=== PATIENT | female | born 1975 | race Hispanic/Latino ===

== ENCOUNTER 2020-12-04 00:26 | Inpatient (IN) | payer SELFPAY ==
[2020-12-04 01:02] LABS: Urine Blood 2+ (Negative); Urine Glucose Negative (Negative); Urine Protein 2+ (Negative); Urine Specific Gravity >=1.030 (1.005-1.030); Urine pH 6.5 (5.0-7.0)
[2020-12-04 01:41] LABS: Urine Amorphous Sediment 3+ /HPF (NONE SEEN); Urine Bacteria <20 /HPF (<20); Urine RBC NONE SEEN /HPF (NONE SEEN)
[2020-12-04 03:29] LABS: Absolute Lymphocytes (CBC) 0.7 K/uL (0.7-4.9); Basophils % 0.2 % (0-1.3); Hematocrit 32.3 % (36.0-45.0); Lymphocytes % 6.5 % (15.3-44.8); MPV 7.7 fL (7.6-11.3)
[2020-12-04 04:01] LABS: ALT/SGPT 14 U/L (12-78); AST/SGOT 12 U/L (15-37); Albumin 3.4 g/dL (3.4-5.0); Alkaline Phosphatase 54 U/L (45-117); BUN Blood Urea Nitrogen 16 mg/dL (7-18); Bicarbonate 26 mmol/L (21-32); Bilirubin Direct < 0.1 mg/dL (0-0.2); Bilirubin Total 0.4 mg/dL (0.2-1.0); Glucose Level 163 mg/dL (74-106); Lipase 12097 U/L (73-393); Potassium 4.2 mmol/L (3.5-5.1); Protein, Total 6.4 g/dL (6.4-8.2); Sodium Level 142 mmol/L (136-145)
[2020-12-04 04:08] LABS: Blood Morphology Comment NOT SEEN (NOT SEEN); Platelet Estimate ADEQ
[2020-12-04] MEDS ORDERED: PIPERACIL/TAZO 3.375 GM VIAL IV ONE (06:44)
[2020-12-04] MEDS ORDERED: NA CHLORIDE 0.9% 100 ML ONE (06:44)
[2020-12-04] MEDS ORDERED: NA CHLORIDE 0.9% 1,000 ML ONE ×2 (06:44→12:26)
[2020-12-04] MEDS ORDERED: MORPHINE 4 MG/ML SYR ONE (08:46)
[2020-12-04] MEDS ORDERED: ONDANSETRON 4 MG/2 ML VIAL ONE ×2 (08:46→15:26)
--- NOTE | 2020-12-04 11:15 | EDPHYS ---
Physician Documentation [facility] Name: Luz Elena Stubbs Age: 45 yrs Sex: Female : 1975 Arrival Date: 12/04/2020 Time: 00:29 Bed 25 Private MD: ED Physician Hussain Ramirez HPI: 12/04 01:00 This 45 yrs old Female presents to ER via Ambulatory with complaints of cp Abdominal Pain, Vomiting. 01:00 The patient presents with abdominal pain in the upper abdomen. Onset: The cp symptoms/episode began/occurred last night. The symptoms radiate to back, chest. Associated signs and symptoms: Pertinent positives: nausea and vomiting. 01:00 Severity of pain: in the emergency department the pain is unchanged despite home cp interventions. 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 - Social history:: Smoking status: Patient denies any tobacco usage or history of. Patient/guardian denies using alcohol, street drugs. ROS: 01:05 Constitutional: Negative for body aches, chills, fever. cp 01:05 Eyes: Negative for injury, pain, redness, and discharge. cp 01:05 ENT: Negative for ear pain, sore throat, difficulty swallowing, difficulty handling secretions. 01:05 Cardiovascular: Positive for chest pain. 01:05 Respiratory: Negative for cough, shortness of breath, wheezing. 01:05 Abdomen/GI: Positive for abdominal pain, nausea and vomiting, Negative for diarrhea, constipation. 01:05 Neuro: Negative for altered mental status, headache, weakness. 01:05 All other systems are negative. Exam: 01:10 Constitutional: The patient appears in no acute distress, alert, awake, cp non-diaphoretic, non-toxic, well developed, well nourished, uncomfortable. 01:10 Head/Face: Normocephalic, atraumatic. cp 01:10 Eyes: Periorbital structures: appear normal, Conjunctiva: normal, no exudate, no injection, Sclera: no appreciated abnormality, Lids and lashes: appear normal, bilaterally. 01:10 ENT: External ear(s): are unremarkable, Nose: is normal, Mouth: Lips: moist, Oral mucosa: moist, Posterior pharynx: Airway: no evidence of obstruction, patent. 01:10 Chest/axilla: Inspection: normal, Palpation: is normal, no crepitus, no tenderness. 01:10 Cardiovascular: Rate: normal, Rhythm: regular. 01:10 Respiratory: the patient does not display signs of respiratory distress, Respirations: normal, no use of accessory muscles, no retractions, labored breathing, is not present, Breath sounds: are clear throughout, no decreased breath sounds, no stridor, no wheezing. 01:10 Abdomen/GI: Inspection: abdomen appears normal, Bowel sounds: active, all quadrants, Palpation: soft, in all quadrants, severe abdominal tenderness, in the right upper quadrant and left upper quadrant, rebound tenderness, is not appreciated, voluntary guarding, is elicited in the right upper quadrant and left upper quadrant. 01:10 Back: pain, that is mild, ROM is normal. 01:10 Neuro: Orientation: to person, place \T\ time. Mentation: is normal. Vital Signs: 00:43 BP 133 / 75; Pulse 63; Resp 18; Temp 97.6; Pulse Ox 100% on R/A; Weight 66.68 kg; df1 Height 5 ft. 5 in. (165.10 cm); Pain 1010; 00:55 BP 107 / 80; Pulse 62; Resp 18; Temp 97.6; Pulse Ox 100% on R/A; cc4 01:15 BP 115 / 79; Pulse 62; Resp 18; Pulse Ox 100% on R/A; cc4 01:45 BP 119 / 82; Pulse 64; Resp 18; Pulse Ox 100% on R/A; cc4 02:15 BP 125 / 80; Pulse 66; Resp 18; Pulse Ox 100% on R/A; cc4 03:15 BP 116 / 77; Pulse 72; Resp 16; Pulse Ox 99% on R/A; cc4 04:00 BP 124 / 79; Pulse 65; Resp 20; Pulse Ox 100% on R/A; cc4 06:11 BP 127 / 76; Pulse 65; Resp 18; Temp 97.7; Pulse Ox 99% on R/A; cc4 06:30 BP 129 / 78; Pulse 64; Resp 16; Pulse Ox 99% on R/A; cc4 08:35 BP 127 / 77; Pulse 63; Resp 18; Pulse Ox 97% on R/A; jw6 10:58 BP 132 / 80; Pulse 62; Resp 18; Pulse Ox 97% on R/A; jw6 13:50 BP 112 / 65; Pulse 65; Resp 16; Pulse Ox 98% on R/A; jw6 00:43 Body Mass Index 24.46 (66.68 kg, 165.10 cm) df1 MDM: 00:53 Patient medically screened. cp 01:10 Differential diagnosis: cholecystitis, Cholelithiasis, gastroesophageal reflux disease, cp pancreatitis, Peptic Ulcer Disease, Perf. Duodenal Ulcer, Perf. Gastric Ulcer, Pyelonephritis, Ureterolithiasis, urinary tract infection. 06:00 Data reviewed: vital signs, nurses notes, lab test result(s), radiologic studies, CT pkl scan, ultrasound. 11:13 Differential diagnosis: Nonspecific abd pain, gastritis, cholecystitis, pancreatitis, rn viral gastroenteritis, gastroenteritis, Pancreatitis, cholelithiasis, gallstone pancreatitis. Counseling: I had a detailed discussion with the patient and/or guardian regarding: the historical points, exam findings, and any diagnostic results supporting the discharge/admit diagnosis, lab results, radiology results, the need for further work-up and treatment in the hospital. Response to treatment: the patient's symptoms have markedly improved after treatment, and as a result, I will admit patient. Admission orders: after a detailed discussion of the patient's condition and case, the admit orders are written by me. ED course: Consulted with Dr. Ryan, will admit to his service for gallstone pancreatitis.. 12/04 00:55 Order name: Basic Metabolic Panel; Complete Time: 04:06 cp 12/04 00:55 Order name: CBC with Diff; Complete Time: 04:13 cp 12/04 00:55 Order name: Hepatic Function; Complete Time: 04:06 cp 12/04 00:55 Order name: Lipase; Complete Time: 04:06 cp 12/04 00:55 Order name: Urine Microscopic Only; Complete Time: 01:43 cp 12/04 01:43 Interpretation: Normal except: AMORPH 3+. cp 12/04 01:01 Order name: Urine Dipstick-Ancillary; Complete Time: 01:27 EDMS 12/04 01:43 Interpretation: Normal except: UKET Trace; UBLD 2+; UPROT 2+. cp 12/04 01:00 Order name: US Abdomen Limited: liver/gallbladder; Complete Time: 00:08 cp 12/04 03:31 Order name: Manual Differential; Complete Time: 04:13 EDMS 12/04 04:08 Order name: CT Abd/Pelvis - IV Contrast Only; Complete Time: 00:08 pkl 12/04 04:47 Order name: SARS-COV-2 RT PCR; Complete Time: 06:09 EDMS 12/04 00:55 Order name: IV Saline Lock; Complete Time: 01:28 cp 12/04 00:55 Order name: Labs collected and sent; Complete Time: 01:28 cp 12/04 00:55 Order name: Urine Dipstick-Ancillary (obtain specimen); Complete Time: 01:05 cp 12/04 00:55 Order name: Urine Test (obtain specimen); Complete Time: 01:26 cp 12/04 01:40 Order name: Labs - recollect needed: all labs needed; Complete Time: 08:17 mw2 Administered Medications: 01:15 Drug: Zofran (Ondansetron) 4 mg Route: IVP; Site: left antecubital; cc4 08:17 Follow up: Response: No adverse reaction jw6 01:15 Drug: Pepcid (famotidine) 20 mg Route: IVP; Site: left antecubital; cc4 08:17 Follow up: Response: No adverse reaction jw6 01:15 Drug: fentaNYL (PF) 25 mcg Route: IVP; Site: left antecubital; cc4 08:16 Follow up: Response: No adverse reaction jw6 01:15 Drug: NS 0.9% 1000 ml Route: IV; Rate: 1 bolus; Site: left antecubital; cc4 02:10 Drug: morphine 4 mg Route: IVP; Site: left antecubital; cc4 08:16 Follow up: Response: No adverse reaction jw6 03:14 Drug: Dilaudid (HYDROmorphone) 1 mg Route: IVP; Site: left antecubital; cc4 08:16 Follow up: Response: No adverse reaction jw6 03:14 Drug: Promethazine 12.5 mg Route: IVP; Site: left antecubital; cc4 08:16 Follow up: Response: No adverse reaction jw6 06:15 Drug: Zosyn (piperacillin-tazobactam) 3.375 grams Route: IVPB; Infused Over: 60 mins; cc4 Site: left antecubital; 08:17 Follow up: Response: No adverse reaction; IV Status: Completed infusion; IV Intake: jw6 100ml 06:15 Drug: NS 0.9% 1000 ml Route: IV; Rate: 125 ml/hr; Site: left antecubital; cc4 14:16 Follow up: Response: No adverse reaction; IV Status: Infusion continued upon transfer; jw6 IV Intake: 1200ml 08:22 Drug: morphine 4 mg Route: IVP; Site: right antecubital; jw6 08:24 Follow up: Response: No adverse reaction jw6 08:22 Drug: Zofran (Ondansetron) 4 mg Route: IVP; Site: right antecubital; jw6 08:24 Follow up: Response: No adverse reaction jw6 Disposition: 11:13 Co-signature as Attending Physician, Hussain Ramirez MD I agree with the assessment and rn plan of care. 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 HPI: 45-year-old female who presents with abdominal pain and vomiting. Has never happened to her before. My personal exam of patient reveals: Tenderness epigastrium and right upper quadrant with guarding, no peritoneal signs. No masses. I agree with assessment and care plan and confirm the diagnosis (es) above. Disposition Summary: 12/04/20 11:14 Hospitalization Ordered Hospitalization Status: Inpatient Admission rn Provider: Jovanni Ryan rn Condition: Stable rn Problem: new rn Symptoms: have improved rn Bed/Room Type: Standard rn Location: [facility] ER HOLD(12/04/20 12:23) ds1 Room Assignment: ERHOLD-(12/04/20 12:23) ds1 Diagnosis - Other cholelithiasis without obstruction rn - Biliary acute pancreatitis without necrosis or infection rn Forms: - Medication Reconciliation Form rn - SBAR form rn Signatures: Dispatcher [employer] EDMS Zaid Martinez MD MD Gina Medina ds1 Ramirez, Hussain, MD MD rn Franco Motta PA PA cp [place], MyKena mw2 Yanira Mistry, RN RN [id number] Kristal Montes df1 Quita Colon jw6 Corrections: (The following items were deleted from the chart) 00:45 00:44 PMHx: None; df1 df1 04:47 04:18 CORONAVIRUS+BRZ ordered. EDMS EDMS 12: 11:14 Telemetry/MedSurg (Inpatient) rn ds1 12:23 11:14 rn ds1
--- NOTE | 2020-12-04 11:15 | ER ---
Nurse's Notes [facility] Name: Luz Elena Stubbs Age: 45 yrs Sex: Female : 1975 Arrival Date: 12/04/2020 Time: 00:29 Bed 25 Private MD: Diagnosis: Other cholelithiasis without obstruction;Biliary acute pancreatitis without necrosis or infection Presentation: 12/04 00:43 Chief complaint: Patient states: upper mid abd pain with vomiting since 2099. df1 Coronavirus screen: Vaccine status: Patient reports being unvaccinated. Client denies travel out of the [place] in the last 14 days. Ebola Screen: Patient negative for fever greater than or equal to 101.5 degrees Fahrenheit, and additional compatible Ebola Virus Disease symptoms Patient denies exposure to infectious person. Patient denies travel to an Ebola-affected area in the 21 days before illness onset. Initial Sepsis Screen: Does the patient meet any 2 criteria? No. Patient's initial sepsis screen is negative. Does the patient have a suspected source of infection? No. Patient's initial sepsis screen is negative. Risk Assessment: Do you want to hurt yourself or someone else? Patient reports no desire to harm self or others. Onset of symptoms was December 03, 2020 at 21:00. 00:43 Method Of Arrival: Ambulatory df1 00:43 Acuity: FRANKY 3 df1 SOLE SKIVER: 00:55 LMP 11/28/2020 cc4 Historical: - Allergies: 00:44 No Known Allergies; df1 - Home Meds: 00:44 None [Active]; df1 - PMHx: 00:45 RA; df1 - PSHx: 00:44 None; df1 - Immunization history:: Adult Immunizations not up to date, Client reports having NOT received the Covid vaccine. - Social history:: Smoking status: Patient denies any tobacco usage or history of. Patient/guardian denies using alcohol, street drugs. Screenin:55 Abuse screen: Denies threats or abuse. Nutritional screening: No deficits noted. cc4 Tuberculosis screening: No symptoms or risk factors identified. Fall Risk None identified. Assessment: 00:55 General: Appears distressed, uncomfortable, Behavior is cooperative, anxious. Pain: cc4 Complains of pain in epigastrium \T\ right upper quadrant abdominal pain. Pain does not radiate. Pain currently is 10 out of 10 on a pain scale. at worst was 10 out of 10 on a pain scale. Quality of pain is described as crampy, sharp, Pain began 2100 12/03/2020. Neuro: No deficits noted. Level of Consciousness is awake, alert, obeys commands, Oriented to person, place, time, situation. Cardiovascular: No deficits noted. Denies chest pain, Heart tones S1 S2 Capillary refill < 3 seconds Patient's skin is warm and dry. Pulses are all present. Rhythm is sinus rhythm. Respiratory: No deficits noted. Airway is patent Breath sounds are clear bilaterally. GI: Abdomen is flat, non-distended, Bowel sounds present X 4 quads. Abd is soft Abdomen is tender to palpation Epigastrium \T\ right upper quad abd. : No signs and/or symptoms were reported regarding the genitourinary system. EENT: No deficits noted. No signs and/or symptoms were reported regarding the EENT system. Eyes Clear. Nares Clear. Derm: No deficits noted. No signs and/or symptoms reported regarding the dermatologic system. Skin is intact. Musculoskeletal: No deficits noted. No signs and/or symptoms reported regarding the musculoskeletal system. Capillary refill < 3 seconds, Range of motion: intact in all extremities. 01:15 Reassessment: No changes from previously documented assessment. # 20 g angiocath saline cc4 lock inserted left AC x 1 attempt with no difficulty, adrien. well; IV NS 1 liter hung to saline lock left AC \T\ infusing \T\ open rate with no s/sx's of infiltration; medicated as ordered for pain \T\ nausea (see orders). 01:35 Reassessment: Dozing intermittently; reports decreasing pain epigastrium and right cc4 upper quad abd. pain to 8/10; US complete; VSS. 02:10 Reassessment: c/o increasing epigastric \T\ right upper quad abd. pain with C. ODETTE Motta cc4 notified with new order rec'd; morphine 4 mg given IVP as ordered; IV NS con't to infuse \T\ open rate left AC with no s/sx's of infiltration. 03:00 Reassessment: IV NS 1 liter infused \T\ converted back to saline lock with no difficulty; cc4 blood drawn from left AC saline lock as recollect \T\ sent to lab. 03:14 Reassessment: Patient appears in no apparent distress at this time. Reports con't pain cc4 of epigastrium \T\ right upper quad abd. 7/10 on pain scale; Dr Martinez notified with new order rec'd; Dilaudid 1 mg \T\ phenergan 12.5 mg given slow IVP as ordered(see orders); VSS; \T\ bedside. 04:10 Reassessment: Patient appears in no apparent distress at this time. Sleeping; VSS; to cc4 CT via stretcher. 04:40 Reassessment: Patient appears in no apparent distress at this time. Returned from CT cc4 via stretcher; NAD. 06:00 Reassessment: Patient appears in no apparent distress at this time. No changes from cc4 previously documented assessment. Dr. Martinez in to see \T\ explaining to of condition \T\ need to transfer to another facility for additional care with v/u. 06:15 Reassessment: Patient appears in no apparent distress at this time. No changes from cc4 previously documented assessment. IVPB Zosyn 3.375 g hung \T\ infusing \T\ 100ml/hr/pump with no difficulty; sleeping; arouses easily; denies any pain; VSS; Dr. Martinez attempting to transfer. 07:00 General: Report given to UMAIR Devlin.. cc4 Vital Signs: 00:43 BP 133 / 75; Pulse 63; Resp 18; Temp 97.6; Pulse Ox 100% on R/A; Weight 66.68 kg; df1 Height 5 ft. 5 in. (165.10 cm); Pain 1010; 00:55 BP 107 / 80; Pulse 62; Resp 18; Temp 97.6; Pulse Ox 100% on R/A; cc4 01:15 BP 115 / 79; Pulse 62; Resp 18; Pulse Ox 100% on R/A; cc4 01:45 BP 119 / 82; Pulse 64; Resp 18; Pulse Ox 100% on R/A; cc4 02:15 BP 125 / 80; Pulse 66; Resp 18; Pulse Ox 100% on R/A; cc4 03:15 BP 116 / 77; Pulse 72; Resp 16; Pulse Ox 99% on R/A; cc4 04:00 BP 124 / 79; Pulse 65; Resp 20; Pulse Ox 100% on R/A; cc4 06:11 BP 127 / 76; Pulse 65; Resp 18; Temp 97.7; Pulse Ox 99% on R/A; cc4 06:30 BP 129 / 78; Pulse 64; Resp 16; Pulse Ox 99% on R/A; cc4 08:35 BP 127 / 77; Pulse 63; Resp 18; Pulse Ox 97% on R/A; jw6 10:58 BP 132 / 80; Pulse 62; Resp 18; Pulse Ox 97% on R/A; jw6 13:50 BP 112 / 65; Pulse 65; Resp 16; Pulse Ox 98% on R/A; jw6 00:43 Body Mass Index 24.46 (66.68 kg, 165.10 cm) df1 ED Course: 00:29 Patient arrived in ED. wm 00:44 Triage completed. df1 00:46 Franco Motta PA is PHCP. cp 00:46 Zaid Martinez MD is Attending Physician. cp 00:49 Yanira Mistry, UMAIR is Primary Nurse. cc4 00:55 Patient has correct armband on for positive identification. Bed in low position. Call cc4 light in reach. Side rails up X 1. 01:15 Arm band placed on. Urine obtained. Urine : negative. Labs ordered per cc4 protocol. Drawn by ED staff. 01:39 US Abdomen Limited: liver/gallbladder In Process Unspecified. EDMS 04:34 CT Abd/Pelvis - IV Contrast Only In Process Unspecified. EDMS 06:07 initiated a transfer with Vj from [facility] Transfer [facility]. mw2 06:[address] Martinez with the General Surgeon from [facility]. mw2 07:02 Attending Physician role handed off by Zaid Martinez MD rn 07:02 Hussain Ramirez MD is Attending Physician. rn 07:14 No provider procedures requiring assistance completed. jw6 07:18 spoke to [facility] transfer [facility], notified that they are waiting for our general surgeon mt to consult and call before acceptance. 11:14 Jovanni Ryan MD is Hospitalizing Provider. rn 14:15 to surgery by REAL ESTATE EXECUTIVE ASSISTANT. jw6 Administered Medications: 01:15 Drug: Zofran (Ondansetron) 4 mg Route: IVP; Site: left antecubital; cc4 08:17 Follow up: Response: No adverse reaction jw6 01:15 Drug: Pepcid (famotidine) 20 mg Route: IVP; Site: left antecubital; cc4 08:17 Follow up: Response: No adverse reaction jw6 01:15 Drug: fentaNYL (PF) 25 mcg Route: IVP; Site: left antecubital; cc4 08:16 Follow up: Response: No adverse reaction jw6 01:15 Drug: NS 0.9% 1000 ml Route: IV; Rate: 1 bolus; Site: left antecubital; cc4 02:10 Drug: morphine 4 mg Route: IVP; Site: left antecubital; cc4 08:16 Follow up: Response: No adverse reaction jw6 03:14 Drug: Dilaudid (HYDROmorphone) 1 mg Route: IVP; Site: left antecubital; cc4 08:16 Follow up: Response: No adverse reaction jw6 03:14 Drug: Promethazine 12.5 mg Route: IVP; Site: left antecubital; cc4 08:16 Follow up: Response: No adverse reaction jw6 06:15 Drug: Zosyn (piperacillin-tazobactam) 3.375 grams Route: IVPB; Infused Over: 60 mins; cc4 Site: left antecubital; 08:17 Follow up: Response: No adverse reaction; IV Status: Completed infusion; IV Intake: jw6 100ml 06:15 Drug: NS 0.9% 1000 ml Route: IV; Rate: 125 ml/hr; Site: left antecubital; cc4 14:16 Follow up: Response: No adverse reaction; IV Status: Infusion continued upon transfer; jw6 IV Intake: 1200ml 08:22 Drug: morphine 4 mg Route: IVP; Site: right antecubital; jw6 08:24 Follow up: Response: No adverse reaction jw6 08:22 Drug: Zofran (Ondansetron) 4 mg Route: IVP; Site: right antecubital; jw6 08:24 Follow up: Response: No adverse reaction jw6 Intake: 08:17 IV: 100ml; Total: 100ml. jw6 14:16 IV: 1200ml; Total: 1300ml. jw6 Outcome: 11:14 Decision to Hospitalize by Provider. rn 15:16 Patient left the ED. jw6 Signatures: Dispatcher [employer] EDHussain Kelly MD MD rn Franco Motta PA PA cp Thompson, Moriah mn Neida, Agustina 2 Camille Salas Christie, RN RN cc4 Kristal Montes df1 Quita Colon jw6 Corrections: (The following items were deleted from the chart) 00:45 00:44 PMHx: None; df1 df1
--- NOTE | 2020-12-04 11:20 | RAD REPORT ---
EXAM DESCRIPTION: CT - Abdomen Pelvis W Contrast - 12/04/2020 6:13 am COMPARISON: None. CLINICAL HISTORY: [facility] MAIN ABD PAIN TECHNIQUE: CT of the abdomen and pelvis was acquired with IV contrast material. Coronal and sagitt al reconstructions were obtained. Automated exposure control was utilized on this examination as a dose lowering technique. FINDINGS: Lung bases: Small pleural effusions are present. Moderate pulmonary edema. Liver: Small right hepatic cyst. Gallbladder and biliary: Normal gallbladder. Unremarkable biliary tree. Pancreas: Peripancreatic fluid is present. Spleen: Normal. Adrenal glands: Normal adrenal glands. Kidneys: Normal kidneys Stomach and Small Bowel: The stomach and small bowel are normal. Urinary bladder: Normal. Uterus and Adnexa: Normal. Colon and Appendix: The colon is unremarkable. No evidence of appendicitis. Retroperitoneum and lymph nodes: Normal. Vascular: Prominent left ovarian vein. Peritoneal cavity: Moderate ascites. Musculoskeletal and soft tissues: Small fat-containing periumbilical hernia. No aggressive bone lesio ns. No compression fracture. IMPRESSION: 1. Peripancreatic fluid could be due to acute pancreatitis or moderate ascites. 2. Small pleural effusions with moderate pulmonary edema. 3. Prominent left ovarian vein which may indicate mild pelvic congestion syndrome. Electronically signed by: Royer Whyte MD 12/04/2020 5:44 AM CDT Due to temporary technical issues with the PACS/Fluency reporting system, reports are being signed by the in house radiologist without review as a courtesy to ensure prompt reporting. The interpreting r adiologist is fully responsible for the content of the report.
--- NOTE | 2020-12-04 11:22 | RAD REPORT ---
EXAM DESCRIPTION: US - Abdomen Exam Limited - 12/04/2020 4:04 am CLINICAL HISTORY: 45 years Female upper abdomen pain TECHNIQUE: Transabdominal scans of the right upper quadrant of the abdomen with grayscale imaging an d Doppler. COMPARISON: None. FINDINGS: Liver: Not evaluated. Portal vein: Not evaluated. Gallbladder: Gallstones are present. Normal gallbladder wall thickness measuring 2 mm. No pericholecy stic fluid. Biliary ducts: Common bile duct is normal measuring 2 mm. Pancreas: Not evaluated. Right kidney: Not evaluated. Aorta and IVC: Not evaluated. IMPRESSION: Cholelithiasis without sonographic evidence of acute cholecystitis. Electronically signed by: Bandar rGeco MD 12/04/2020 2:50 AM CDT Due to temporary technical issues with the PACS/Fluency reporting system, reports are being signed by the in house radiologist without review as a courtesy to ensure prompt reporting. The interpreting r adiologist is fully responsible for the content of the report.
[2020-12-04 13:41] VITALS: BMI 23.3
[2020-12-04] MEDS ORDERED: INFLUENZA VACCINE (for 6+ mo) 0.5 ML DOSE IMVAC ONE (14:00)
[2020-12-04] MEDS ORDERED: MORPHINE 4 MG/ML SYR IV PRN ×2 (14:02→16:25)
[2020-12-04] MEDS ORDERED: ONDANSETRON 4 MG/2 ML VIAL IV PRN ×2 (14:02→16:25)
[2020-12-04] MEDS: D5 0.45 NS 1,000 ML IV SCH ×2 (14:02→21:55)
[2020-12-04] MEDS ORDERED: propofoL 200 MG/20 ML VIAL IV ONE (14:22)
[2020-12-04] MEDS ORDERED: FENTANYL CITR 100 MCG/2 ML ONE (14:23)
[2020-12-04] MEDS ORDERED: ROCURONIUM 50 MG/5 ML VIAL IV ONE (14:23)
[2020-12-04] MEDS ORDERED: LIDOCAINE 1% MPF 2 ML AMPULE ONE (14:23)
[2020-12-04] MEDS ORDERED: LIDOCAINE 1% MPF 5 ML VIAL ONE (14:23)
[2020-12-04] MEDS ORDERED: Ringers Lactate 1,000 ML IV ONE (14:48)
--- NOTE | 2020-12-04 14:49 | P.HP ---
Date of Service: 12/04/20 PC: This 45-year-old female presented to the emergency room with severe abdominal pain for diagnosis and treatment. HPC: Patient started having severe abdominal pain earlier today. Located in the middle portion of her abdomen, radiating into her back. Says she never had pain like this before. PSHx: Negative PMHx: Negative Social Hx: No known allergies Sys R: No cough, wheeze, shortness of breath. No chest pain or palpitations. States she has been in relatively good health until this. O/E: Awake alert vital signs are stable HEENT: Nonicteric Chest: Air entry equal bilaterally Abd: Tender in the right upper quadrant [place]: Intact Data: Elevated lipase, CT scan shows pancreatitis, also gallstones Impression: Cholecystitis with cholelithiasis, gallstone pancreatitis Plan: I will taken the operating room for laparoscopic possible open cholecystectomy with a cholangiogram. The risks of this procedure have been discussed. The possibility of bleeding, infection, injury to bile ducts blood vessels and intestines has been described. The possible need for an open and/or further surgeries and procedures was discussed. She understands and wants us to proceed.
[2020-12-04] MEDS: CEFTRIAXONE 1 GM/NS 50 ML 1 GM/50 ML BAG IV SCH (15:00)
[2020-12-04] MEDS ORDERED: KETOROLAC 30 MG/ML INJ ONE (15:26)
[2020-12-04] MEDS ORDERED: dexAMETHasone 10 MG/ML VIAL ONE (15:26)
[2020-12-04] MEDS ORDERED: GLYCOPYRROLATE 0.2 MG/ML SYR ONE (15:33)
[2020-12-04] MEDS ORDERED: NEOSTIGMINE 1 MG/ML -5 ML ONE (15:33)
[2020-12-04] MEDS ORDERED: Phenylephrine HCl 10 MG/ML 1 ML VIAL ONE (15:35)
--- NOTE | 2020-12-04 16:02 | P.OP ---
Preoperative diagnosis: Cholecystitis with cholelithiasis, gallstone pancreatitis Postoperative diagnosis: The same Primary procedure: Laparoscopic cholecystectomy with cholangiogram Anesthesia: General Estimated blood loss: Less than 10 cc Specimen: Gallbladder and contents Findings: Normal cholangiogram Operative Technique: The patient brought the operating room placed supine on the table. After the induction of adequate general endotracheal anesthesia, the area of the abdomen was prepped with a DuraPrep solution, and she was draped in usual aseptic manner. A subumbilical incision was made. This was brought down through the skin and subcutaneous tissue. The Visiport was used to enter the peritoneal cavity and created pneumoperitoneum to approximately 12 mmHg. Under direct vision a 5 mm trocar was placed in the upper midline, and 2 other 5 mm trochars on the right lateral side of the abdomen. The patient was now placed in reverse Trendelenburg. The table was turned and rolled to the left. Visualized in the right upper quadrant we could see a fair amount of free fluid around the liver itself. This was aspirated using the board attendant. The gallbladder was ident ified. It was noted to be acutely inflamed and distended. A grasper was placed on the fundus. Another 1 was placed by Carrasco's pouch. Applying lateral traction were able to dissect out and expose the cystic duct and artery. There was quite a lot of fluid in the subcutaneous tissue around the structures. The cystic duct having been isolated was clipped in usual way. An opening was made into it through which we obtained a normal cholangiogram. The catheter was removed. Clips were placed on the distal portion of the cystic duct. The cystic artery was identified clipped and divided in the usual manner. The gallbladder was now dissected free from the liver bed placed into an Endo Catch and brought out through the umbilical trocar site. Attention was turned towards the right upper quadrant. The area was irrigated and aspirated of the irrigating fluid. The umbilical trocar site was now approximated using the Endo Close and 2 absorbable sutures. At this point the pneumoperitoneum was collapsed, the trochars withdrawn, and the sutures tied. She was in a stable condition was sent to the recovery room, everett having been applied to the skin. Needle sponge instrument count were correct. No drains were placed. Complications: None Transferred to: Recovery Room Condition: Good
[2020-12-04] MEDS ORDERED: D5 0.45 NS 1,000 ML IV ONE (16:35)
[2020-12-04] MEDS: HYDROCODONE/APAP 7.5/325 MG TAB PO PRN ×2 (17:51→23:51)
[2020-12-05 05:49] LABS: Absolute Lymphocytes (CBC) 0.7 K/uL (0.7-4.9); Basophils % 0.1 % (0-1.3); Hematocrit 32.8 % (36.0-45.0); Lymphocytes % 4.8 % (15.3-44.8); MPV 7.5 fL (7.6-11.3); RBC Red Blood Cell Count 4.36 M/uL (3.86-4.86)
[2020-12-05 06:09] LABS: ALT/SGPT 18 U/L (12-78); AST/SGOT 23 U/L (15-37); Albumin 2.7 g/dL (3.4-5.0); Alkaline Phosphatase 43 U/L (45-117); BUN Blood Urea Nitrogen 8 mg/dL (7-18); Bicarbonate 27 mmol/L (21-32); Bilirubin Direct 0.1 mg/dL (0-0.2); Bilirubin Total 0.4 mg/dL (0.2-1.0); Glucose Level 157 mg/dL (74-106); Lipase 1819 U/L (73-393); Potassium 3.5 mmol/L (3.5-5.1); Sodium Level 139 mmol/L (136-145)
[2020-12-05] MEDS: D5 0.45 NS 1,000 ML IV SCH ×2 (06:37→16:58)
[2020-12-05] MEDS: ACETAMINOPHEN 500 MG TAB PO PRN (09:23)
[2020-12-05] MEDS: CEFTRIAXONE 1 GM/NS 50 ML 1 GM/50 ML BAG IV SCH (09:27)
[2020-12-05] MEDS: HYDROCODONE/APAP 7.5/325 MG TAB PO PRN ×2 (10:46→20:27)
[2020-12-05] MEDS ORDERED: D5 0.45 NS 1,000 ML IV SCH (18:25)
[2020-12-05 20:59] VITALS: O2SAT 96
[2020-12-06] MEDS: HYDROCODONE/APAP 7.5/325 MG TAB PO PRN (04:28)
[2020-12-06 06:22] LABS: Absolute Lymphocytes (CBC) 0.8 K/uL (0.7-4.9); Basophils % 0.1 % (0-1.3); Hematocrit 33.3 % (36.0-45.0); MPV 7.8 fL (7.6-11.3)
[2020-12-06] MEDS: CEFTRIAXONE 1 GM/NS 50 ML 1 GM/50 ML BAG IV SCH (08:49)
[2020-12-06] MEDS: ACETAMINOPHEN 500 MG TAB PO PRN (12:03)
--- NOTE | 2020-12-06 12:11 | P.DS ---
Admission Date: 12/04/20 Discharge Date: 12/06/20 Disposition: ROUTINE DISCHARGE Discharge Condition: GOOD Reason for Admission: Gallstone pancreatitis Procedures: Laparoscopic cholecystectomy with a cholangiogram Brief History of Present Illness: Patient presented to the emergency room with severe right upper quadrant abdominal pain radiating into her back, for diagnosis and treatment. Hospital Course: The patient was admitted to the hospital with gallstone pancreatitis. She was brought to the operating room she underwent a laparoscopic cholecystectomy with a cholangiogram. The cholangiogram did not demonstrate any further common bile duct stones. The patient responded well her lipase has returned to normal. She feels much better today, despite being tired, but is deemed fit for discharge. Vital Signs/Physical Exam: Temp Pulse Resp BP Pulse Ox 99.8 F 112 H 23 H 116/68 92 12/06/20 08:00 12/06/20 08:00 12/06/20 08:00 12/06/20 08:00 12/06/20 08:00 Laboratory Data at Discharge: WBC 15.30 K/uL (4.3-10.9) H 12/06/20 05:49 Hgb 10.9 g/dL (12.0-15.0) L 12/06/20 05:49 Hct 33.3 % (36.0-45.0) L 12/06/20 05:49 Plt Count 196 K/uL (152-406) 12/06/20 05:49 Sodium 139 mmol/L (136-145) 12/05/20 05:35 Potassium 3.5 mmol/L (3.5-5.1) 12/05/20 05:35 BUN 8 mg/dL (7-18) 12/05/20 05:35 Creatinine 0.68 mg/dL (0.55-1.3) 12/05/20 05:35 Glucose 157 mg/dL (74-106) H 12/05/20 05:35 Total Bilirubin 0.4 mg/dL (0.2-1.0) 12/05/20 05:35 AST 23 U/L (15-37) 12/05/20 05:35 ALT 18 U/L (12-78) 12/05/20 05:35 Alkaline Phosphatase 43 U/L (45-117) L 12/05/20 05:35 Lipase 381 U/L (73-393) 12/06/20 05:49 Home Medications: NK [No Home Meds] 12/04/20 Physician Discharge Instructions: Ambulated home, continue incentive spirometry. You may shower. Change dressings as needed. Pain medicines as discussed. Milk of magnesia as needed. Any questions or problems, go to the emergency room, or contact me Diet: Regular Activity: Ad haydee Followup: Jovanni Ryan MD [OUTSIDE PHYSICIAN] -
[2020-12-06 14:11] VITALS: BP 114/70; TEMP 97.6
== END 2020-12-06 12:46 | disposition home or self-care (01) | DRG 417 ==
LOC: ER 00:26 → ERHOLD 11:16 → 2ND 15:03
PROVIDERS: ADMIT Surgery; ATTEND Surgery
PROC: BF121ZZ Fluoroscopy of Gallbladder using Low Osmolar Contrast (ICD-10-PCS; 2020-12-04)
PROC: 0FT44ZZ Resection of Gallbladder, Percutaneous Endoscopic Approach (ICD-10-PCS; principal; 2020-12-04 14:00)
DX: K80.10 Calculus of gallbladder with chronic cholecystitis without obstruction (principal); K85.10 Biliary acute pancreatitis without necrosis or infection; Z20.822 Contact with and (suspected) exposure to COVID-19
CPT/HCPCS: 36415; 74177; 74300; 76705; 80048; 80076; 81003; 81015; 83690; 85025; 88304; 99284; J0696; J1100; J2370; J2405; J2543; J2704; J2710; J3010; J7030; J7120; J7799; Q9967; U0003